=== PATIENT | male | born 1995 | race Caucasian/White ===

== ENCOUNTER 2016-06-18 20:43 | Emergency (ER) | payer BC ==
[2016-06-18] MEDS ORDERED: NS 1,000 ML IV ONE (20:52)
[2016-06-18 20:59] VITALS: BP 127/66; PULSE 56; RESP 16; TEMP 98.5; O2SAT 95
[2016-06-18 21:10] LABS: % IMMATURE GRANULYOCYTES 0.3 % (0.0-1.1); ABSOLUTE IMMATURE GRANULOCYTES 0.02 10^3/uL (0.00-0.10); ADD DIFF? NO; ADD MORPH? NO; ADD SCAN? NO; ATYPICAL LYMPHOCYTE FLAG 0 (0-99); FRAGMENT RBC FLAG 0 (0-99); HEMATOCRIT 47.5 % (40.0-51.0); HEMOGLOBIN 16.2 g/dL (13.7-17.5); LEFT SHIFT FLG 0 (0-99); LIPEMIA HEMOLYSIS FLAG 90 (0-99); MEAN CELL HEMOGLOBIN 31.4 pg (27.9-34.1); MEAN CELL HEMOGLOBIN CONCENTR. 34.1 g/dL (32.4-36.7); MEAN CELL VOLUME 92.1 fL (81.5-99.8); MEAN PLATELET VOLUME 8.8 fL (8.7-11.7); PLATELET CLUMPS FLAG 0 (0-99); PLATELET COUNT 219 10^3/uL (150-400); RED BLOOD CELL COUNT 5.16 10^6/uL (4.40-6.38); RED CELL DISTRIBUTION WIDTH 11.9 % (11.5-15.2)
[2016-06-18 21:22] LABS: ANION GAP 10 mEq/L (8-16); CALCIUM 8.7 mg/dL (8.5-10.4); CARBON DIOXIDE 26 mEq/l (22-31); CHLORIDE 102 mEq/L (97-110); CREATININE 0.9 mg/dL (0.7-1.3); GLOMERULAR FILTRATION RATE > 60; GLUCOSE 90 mg/dL (70-100); POTASSIUM 4.1 mEq/L (3.5-5.2); SODIUM 138 mEq/L (134-144)
[2016-06-18] MEDS ORDERED: ONDANSETRON 4 MG/2 ML VIAL IVP ONE (21:46)
[2016-06-18 21:49] LABS: COLOR YELLOW; LEUKOCYTE ESTERASE,URINE NEGATIVE (NEGATIVE); NITRITE,URINE NEGATIVE (NEGATIVE); PH,URINE 6.5 (5.0-7.5)
[2016-06-18 22:11] LABS: ALBUMIN 3.4 g/dL (3.5-5.0); BILIRUBIN,TOTAL 0.9 mg/dL (0.1-1.4); BILIRUBIN-CONJUGATED 0.3 mg/dL (0.0-0.5); BILIRUBIN-UNCONJUGATED 0.6 mg/dL (0.0-1.1); TOTAL PROTEIN 6.5 g/dL (6.3-8.2)
[2016-06-18] MEDS ORDERED: cefTRIAXone 0.25 GM in NS 100 ML IV ONE (22:20)
[2016-06-18] MEDS ORDERED: DOXYCYCLINE 100 MG PREPACK#2 BTL TAKEHOME ONE (22:21)
--- NOTE | 2016-06-18 22:25 | UCPHY ---
H & P Patient Type: Established Chief Complaint Nursing Narrative: complains of fatigue, body aches, nausea and low back pain x 3 days. Was seen at [facility], given fluids and tested negative for influenza. Time Seen by Provider: 06/18/16 20:52 HPI/ROS: Since Thursday, 3 days prior to arrival this patient has fatigue, body aches and some testicular discomfort. He explains that on Thursday he 1st noted a frontal throbbing headache 2009 at its peak intensity worse with movement associated with some nausea. That has since diminished to a 1/10 mild head discomfort. He however complains now more of lower back ache bilaterally that worsened since Thursday. This is somewhat positional he feels but does not feel like it is in the muscles. He feels is deeper in an . He also reports mild right testicular discomfort when asked. He has associated chills since subjective fevers and myalgias. He was seen at the [facility] for DU and tested negative for influenza. ROS: Constitutional: As per HPI with no other complaints. HEENT: He denies any nasal congestion. No sore throat. No vision complaints. Neuro: No complaints. Pulmonary: No cough. GI: He has diminished appetite and some nausea but no vomiting. He reports normal bowel movements. He reports minimal p.o. intake due to anorexia since Thursday. No diarrhea. : Mild right testicular or epididymal discomfort. He also reports mild dysuria. No urethral discharge. No genital lesions. Integumentary: No rash. 10 point ROS is otherwise negative. 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 He denies any STD risk factors. No recent foreign travel. - Physical Exam Exam: Vital signs are normal. General Appearance: Alert, no distress. Eyes: Pupils equal and round no pallor or injection. ENT, Mouth: Mucous membranes moist. Respiratory: There are no retractions, lungs are clear to auscultation. Cardiovascular: Regular rate and rhythm. Gastrointestinal: Abdomen is soft with mild right upper quadrant tenderness, no masses, bowel sounds normal. : Patient has right epididymal tenderness. Appreciate no testicular swelling. I appreciate no obvious testicular or epididymal masses. Left epididymis and testicle is nontender. Circumcised penis with no urethral discharge or genital lesions. Back: No obvious muscular tenderness to palpation. He also denies any lisette CVA tenderness but he admits that there is no external tenderness that reproduces symptoms including no midline spine tenderness. Neurological: Alert with no focal deficits. Skin: Warm and mildly diaphoretic, no rashes. Musculoskeletal: Neck is supple nontender. Extremities are symmetrical, full range of motion. Psychiatric: Mood and affect normal DIFFERENTIAL DIAGNOSIS: After history and physical exam differential diagnosis was considered for epididymitis, pyelonephritis, viral syndrome, doubt viral meningitis, rhabdomyolysis, nephritis, hepatitis Constitutional: Initial Vital Signs Temperature (C) 36.9 C 06/18/16 20:57 Heart Rate 56 L 06/18/16 20:57 Respiratory Rate 16 06/18/16 20:57 Blood Pressure 127/66 H 06/18/16 20:57 O2 Sat (%) 95 06/18/16 20:57 O2 Delivery Mode Room Air Allergies/Adverse Reactions: Sulfa (Sulfonamide Antibiotics) Allergy (Verified 06/18/16 20:57) Home Medications: Medication Instructions Recorded Doxycycline Hyclate [Vibramycin 100 mg PO BID #14 cap 06/18/16 100 MG (*)] Ondansetron Odt [Zofran Odt] 4 - 8 mg PO Q4PRN PRN #4 tab 06/18/16 Medical Decision Making ED Course/Re-evaluation: IV normal saline bolus, Zofran for nausea with improvement. He tolerated p.o. intake thereafter. The patient had ibuprofen Tylenol within hours prior to arrival with mild improvement in symptoms. After workup, a unremarkable CBC, LFTs, urinalysis but patient has complained of right testicle pain and right epididymal tenderness on exam. I suspect he has epididymitis and counseled him regarding this. He is treated with ceftriaxone 250 mg IV and doxycycline 100 mg p. o. here to start and will continue on the doxycycline for the next week. A split specimen is obtained and is pending. While the patient feels poorly, he does not appear toxic. He does not have septic physiology. I counseled patient regarding or findings and treatment plan. The patient is sent home in stable condition with normal vital signs tolerating p.o. intake. - Data Points Laboratory Results: Laboratory Results 06/18/16 20:56 06/18/16 20:56 06/18/16 06/18/16 21:40 20:56 WBC 5.96 10^3/uL (3.80-9.50) RBC 5.16 10^6/uL (4.40-6.38) Hgb 16.2 g/dL (13.7-17.5) Hct 47.5 % (40.0-51.0) MCV 92.1 fL (81.5-99.8) MCH 31.4 pg (27.9-34.1) MCHC 34.1 g/dL (32.4-36.7) RDW 11.9 % (11.5-15.2) Plt Count 219 10^3/uL (150-400) MPV 8.8 fL (8.7-11.7) Neut % (Auto) 66.9 % (39.3-74.2) Lymph % (Auto) 17.4 % (15.0-45.0) [place] % (Auto) 13.8 H % (4.5-13.0) Eos % (Auto) 1.3 % (0.6-7.6) Baso % (Auto) 0.3 % (0.3-1.7) Nucleat RBC Rel Count 0.0 % (0.0-0.2) Absolute Neuts (auto) 3.98 10^3/uL (1.70-6.50) Absolute Lymphs (auto) 1.04 10^3/uL (1.00-3.00) Absolute Monos (auto) 0.82 H 10^3/uL (0.30-0.80) Absolute Eos (auto) 0.08 10^3/uL (0.03-0.40) Absolute Basos (auto) 0.02 10^3/uL (0.02-0.10) Absolute Nucleated RBC 0.00 10^3/uL (0-0.01) Immature Gran % 0.3 % (0.0-1.1) Immature Gran # 0.02 10^3/uL (0.00-0.10) Sodium 138 mEq/L (134-144) Potassium 4.1 mEq/L (3.5-5.2) Chloride 102 mEq/L (97-110) Carbon Dioxide 26 mEq/l (22-31) Anion Gap 10 mEq/L (8-16) BUN 10 mg/dL (7-23) Creatinine 0.9 mg/dL (0.7-1.3) Estimated GFR > 60 Glucose 90 mg/dL (70-100) Calcium 8.7 mg/dL (8.5-10.4) Total Bilirubin 0.9 mg/dL (0.1-1.4) Conjugated Bilirubin 0.3 mg/dL (0.0-0.5) Unconjugated Bilirubin 0.6 mg/dL (0.0-1.1) AST 33 IU/L (17-59) ALT 27 IU/L (21-72) Alkaline Phosphatase 80 IU/L (38-126) Creatine Kinase 48 IU/L (0-224) Total Protein 6.5 g/dL (6.3-8.2) Albumin 3.4 L g/dL (3.5-5.0) Urine Color YELLOW Urine Appearance CLEAR Urine pH 6.5 (5.0-7.5) Ur Specific [place] 1.010 (1.002-1.030) Urine Protein NEGATIVE (NEGATIVE) Urine Ketones NEGATIVE (NEGATIVE) Urine Blood NEGATIVE (NEGATIVE) Urine Nitrate NEGATIVE (NEGATIVE) Urine Bilirubin NEGATIVE (NEGATIVE) Urine Urobilinogen 1.0 EU (0.2-1.0) Ur Leukocyte Esterase NEGATIVE (NEGATIVE) Urine Glucose NEGATIVE (NEGATIVE) C.trachomatis RNA (TMA) Pending Monoscreen NEGATIVE (NEGATIVE) N.gonorrhoeae RNA (TMA) Pending Medications Given: Discontinued Medications Doxycycline Hyclate (Vibramycin 100 Mg Prepack#2) 1 btl TAKEHOME EDNOW ONE Stop: 06/18/16 22:22 Last Admin: 06/18/16 22:30 Dose: 1 btl Sodium Chloride (Ns) 1,000 mls @ 0 mls/hr IV ONCE ONE PRN Reason: Wide Open Stop: 06/18/16 20:53 Last Admin: 06/18/16 20:55 Dose: 1,000 mls Ceftriaxone Sodium 0.25 gm/ (Sodium Chloride) 100 mls @ 200 mls/hr IV EDNOW ONE PRN Reason: Protocol Stop: 06/18/16 22:49 Last Admin: 06/18/16 22:20 Dose: 100 mls Ondansetron HCl (Zofran) 4 mg IVP EDNOW ONE Stop: 06/18/16 21:47 Last Admin: 06/18/16 21:49 Dose: 4 mg Departure - Departure Disposition: Home, Routine, Self-Care Clinical Impression: Acute epididymitis, Nausea Condition: Good Instructions: Epididymitis (ED) Additional Instructions: Diagnosis: 1. Epididymitis 2. Nausea Plan: Drink plenty fluids Continue ibuprofen and Tylenol for aches and pains as needed Zofran for nausea if needed Doxycycline antibiotic Wear sunscreen if you are outside is the doxycycline will make him more prone to sunburn Eat yogurt and/or probiotic while on this antibiotic to prevent diarrhea. Return for any significant worsening despite the treatment plan. Referrals: NONE *PRIMARY CARE P,. [Primary Care Provider] - As per Instructions Prescriptions: Doxycycline Hyclate [Vibramycin 100 MG (*)] 100 mg PO BID #14 cap Ondansetron Odt [Zofran Odt] 4 - 8 mg PO Q4PRN PRN #4 tab PRN Reason: Vomiting - PQRS PQRS Measurement: NA
[2016-06-18] MEDS ORDERED: LIDO/EPI 1% **for epidural** 30 ML SDV ONE (22:26)
[2016-06-20 12:32] LABS: CHLAMYDIA AMPLIFICATION GENPRB NEGATIVE (NEGATIVE)
== END 2016-06-18 22:56 | disposition home or self-care (01) ==
LOC: CED 20:43
DX: N45.1 Epididymitis (principal); R11.0 Nausea
CPT/HCPCS: 80048-PO; 80076-PO; 81003-PO; 82550-PO; 85025-PO; 86308-PO; 96361-PO; 96365-PO; 96374-PO; 96375-PO; 99215-PO; G0463-PO; J0696; J2405

== ENCOUNTER 2017-01-02 21:37 | Emergency (ER) | payer BC ==
[2017-01-02] MEDS ORDERED: IBUPROFEN 200 MG TAB PO ONE (21:50)
[2017-01-02] MEDS ORDERED: KETOROLAC 15 MG/1 ML SDV IVP ONE (21:53)
[2017-01-02] MEDS ORDERED: NS 1,000 ML IV ONE ×2 (21:55→22:45)
--- NOTE | 2017-01-02 21:59 | EDPHY ---
H & P Stated Complaint: fever, tired, ST Source: Patient, Family - Medical/Surgical History Hx Asthma: Yes Hx Chronic Respiratory Disease: No Hx Diabetes: No Hx Cardiac Disease: No Hx Renal Disease: No Hx Cirrhosis: No Hx Alcoholism: No Hx HIV/AIDS: No Hx Splenectomy or Spleen Trauma: No Other PMH: APPY - Family History Significant Family History: No pertinent family hx - Social History Smoking Status: Never smoked Time Seen by Provider: 01/02/17 21:54 HPI/ROS: CHIEF COMPLAINT: Sore throat and fever History by patient and his mother HISTORY OF PRESENT ILLNESS: 21-year-old otherwise healthy young man presents complaining of 24 hours of fever, malaise, sore throat and body aches. The illness began last night with a sore throat. He complains of severe fatigue was unable to get out of bed all day today. He did do a very hard bike ride 2 days ago. His mother was worried he might have rhabdomyolysis because of this bike riding. He denies any runny nose or cough. He says he feels like it is hard to take a deep breath but he denies any shortness of breath but may have some pleuritic chest pain. He also complains of some upper back pain. He denies any abdominal pain, nausea vomiting or diarrhea. He denies any urinary symptoms. He has had no ill exposures. He denies any recent tick bites. He does have a mosquito bite on his chest. REVIEW OF SYSTEMS: As in HPI, and all other systems reviewed and are negative (Deepa Martinez) - Physical Exam Exam: General Appearance: Alert, tired and uncomfortable appearing. Eyes: Pupils equal and round no pallor or injection. ENT, Mouth: Mucous membranes moist. Positive bilateral symmetrically enlarged tonsils with redness and white exudate Respiratory: Tachypnea, Normal effort, lungs are clear to auscultation. No wheezes, rales or rhonchi. Cardiovascular: Regular rate and rhythm. S1, S2, no murmurs, gallops or rubs appreciated Gastrointestinal: Abdomen is soft and nontender, no masses, bowel sounds normal. Back: No CVA tenderness, no bony tenderness Neurological: Awake, alert and oriented x 3, no pronator drift, normal gait, no pronator drift Skin: Warm and dry, no rashes. Musculoskeletal: No deformities or tenderness. Extremitie:s full range of motion, no edema Psychiatric: Patient has normal affect, there is no agitation. (Deepa Martinez) Constitutional: Initial Vital Signs Temperature (C) 38.8 C H 01/02/17 21:41 Heart Rate 100 01/02/17 21:41 Respiratory Rate 16 01/02/17 21:41 Blood Pressure 125/76 H 01/02/17 21:41 O2 Sat (%) 94 01/02/17 21:41 O2 Delivery Mode Room Air Allergies/Adverse Reactions: Sulfa (Sulfonamide Antibiotics) Allergy (Verified 01/02/17 21:47) Home Medications: Medication Instructions Recorded Amoxicillin 500 mg PO TID 7 Days 01/03/17 Medical Decision Making ED Course/Re-evaluation: 21-year-old male signed out to me by the previous provider for complaints of fever, myalgias and a sore throat since this morning. Mother states he was fine yesterday and he has not been ill recently otherwise. The patient confirms this by nodding and answering in short sentences. In fact they went on a 5 mi bike ride earlier this week. Workup in this ER stay prior to my arrival shows a mild elevation of his white blood cell count and a slight left shift. A basic metabolic panel was fairly unremarkable. Rapid Strep negative, Culture pending. Lactic Acid nml. CPK nml. Blood Cultures drawn and pending. CXR showed NAD. The patient recieved 2 L of IVF and Toradol. Due to the complaints of pharyngitis and noted exudates on prior exam (I see minimal exudates on subsequent exam) a mono spot and liver enzyme tests were added. When these came back negative I suggested a lumbar puncture. Mother of patient declined head CT prior to LP and understands risks/benefits. After informed consent, a lumbar puncture was attempted x2 under the usual sterile precautions and was unsuccessful. Mother of patient requested transfer to the [facility] for another provider to attempt LP or LP under fluoroscopy. 2 g of Rocephin was ordered but mother declined this and took him by private operating vehicle to the other facility. The emergency provider at the [facility], Dr. Gallegos, was notified of the patient's pending arrival as well as the previous workup. (Simi Walters) 21-year-old man presents with sore throat and fever, somewhat ill-appearing but with stable vital signs. Patient's white blood cell count is elevated but chemistries are unremarkable and lactate was within normal limits. Rapid strep was negative. Patient was given the L of normal saline and ketorolac. On re- evaluation after 200 cc of normal saline and ketorolac the patient continued to feel tired and his throat. Because of his swollen tonsils and pharyngitis he was given IV Decadron. I suspect a viral pharyngitis though I cannot rule out other viral illness or [place]. We will give the patient a 2 liters of fluid and let the Decadron take effect and re-eval. I will transfer care to for final disposition pending re-evaluation. I discussed with patient's mother and with . We will add on monospot test and liver enzymes. ( Deepa Martinez) - Data Points Laboratory Results: Laboratory Results 01/02/17 21:44 01/02/17 21:44 01/03/17 01:15 CSF [place] IgG Ab Cancelled CSF [place] IgM Ab Cancelled CSF [place] Interp Cancelled Miscellaneous Test Pending Microbiology Results: MICROBIOLOGY 01/03/17 01:15 Cerebral Spinal Fluid Gram Stain - Final Medications Given: Discontinued Medications Acetaminophen (Tylenol) 1,000 mg PO EDNOW ONE Stop: 01/03/17 00:23 Last Admin: 01/03/17 00:35 Dose: Not Given Dexamethasone (Decadron Injection) 10 mg IVP EDNOW ONE Stop: 01/02/17 22:29 Last Admin: 01/02/17 22:41 Dose: 10 mg Sodium Chloride (Ns) 1,000 mls @ 0 mls/hr IV EDNOW ONE; Wide Open PRN Reason: Protocol Stop: 01/02/17 21:56 Last Admin: 01/02/17 22:12 Dose: 1,000 mls Sodium Chloride (Ns) 1,000 mls @ 0 mls/hr IV ONCE ONE PRN Reason: Wide Open Stop: 01/02/17 22:46 Last Admin: 01/02/17 22:48 Dose: 1,000 mls Ceftriaxone Sodium 2 gm/ (Sodium Chloride) 100 mls @ 200 mls/hr IV EDNOW ONE PRN Reason: Protocol Stop: 01/03/17 00:58 Last Admin: 01/03/17 00:35 Dose: Not Given Sodium Chloride (Ns) 1,000 mls @ 0 mls/hr IV ONCE ONE; Wide Open PRN Reason: Protocol Stop: 01/03/17 01:04 Last Admin: 01/03/17 01:07 Dose: 1,000 mls Sodium Chloride (Ns) 1,000 mls @ 0 mls/hr IV ONCE ONE PRN Reason: Wide Open Stop: 01/03/17 02:13 Last Admin: 01/03/17 02:16 Dose: 1,000 mls Ibuprofen (Motrin) 400 mg PO EDNOW ONE Stop: 01/02/17 21:51 Last Admin: 01/02/17 21:53 Dose: Not Given Ketorolac Tromethamine (Toradol) 15 mg IVP EDNOW ONE Stop: 01/02/17 21:54 Last Admin: 01/02/17 21:59 Dose: 15 mg Departure - Departure Disposition: Home, Routine, Self-Care Clinical Impression: Viral syndrome, Dehydration Fever Qualifiers: Fever type: unspecified Qualified Code(s): R50.9 - Fever, unspecified Condition: Good Instructions: Dehydration (ED), Fever in Adults (ED), Viral Syndrome (ED) Additional Instructions: 1. Drink lots of fluids stay well-hydrated. 2. Keep your fever down with Tylenol Motrin you can alternate these every 4-6 hours. 3. If you feel worse including abdominal pain vomiting or you feel ill or have high fever return to the emergency room. Referrals: NONE *PRIMARY CARE P,. [Primary Care Provider] - As per Instructions Prescriptions: Amoxicillin 500 mg PO TID 7 Days
[2017-01-02 22:01] LABS: % IMMATURE GRANULYOCYTES 0.2 % (0.0-1.1); ABSOLUTE IMMATURE GRANULOCYTES 0.02 10^3/uL (0.00-0.10); ADD DIFF? NO; ADD MORPH? NO; ADD SCAN? NO; ATYPICAL LYMPHOCYTE FLAG 10 (0-99); FRAGMENT RBC FLAG 0 (0-99); HEMATOCRIT 42.9 % (40.0-51.0); LEFT SHIFT FLG 0 (0-99); LIPEMIA HEMOLYSIS FLAG 90 (0-99); MEAN CELL HEMOGLOBIN 31.4 pg (27.9-34.1); MEAN CELL VOLUME 89.7 fL (81.5-99.8); MEAN PLATELET VOLUME 9.1 fL (8.7-11.7); PLATELET CLUMPS FLAG 0 (0-99); PLATELET COUNT 223 10^3/uL (150-400); RED BLOOD CELL COUNT 4.78 10^6/uL (4.40-6.38); RED CELL DISTRIBUTION WIDTH 11.7 % (11.5-15.2)
[2017-01-02 22:14] LABS: ANION GAP 14 mEq/L (8-16); CALCIUM 9.2 mg/dL (8.5-10.4); CARBON DIOXIDE 21 mEq/l (22-31); CHLORIDE 103 mEq/L (97-110); CREATININE 0.8 mg/dL (0.7-1.3); GLOMERULAR FILTRATION RATE > 60; GLUCOSE 123 mg/dL (70-100); POTASSIUM 3.8 mEq/L (3.5-5.2); SODIUM 138 mEq/L (134-144)
[2017-01-02] MEDS ORDERED: DEXAMETHASONE 10 MG/ML VIAL IVP ONE (22:28)
[2017-01-02 23:16] LABS: ALBUMIN 4.2 g/dL (3.5-5.0); BILIRUBIN,TOTAL 2.1 mg/dL (0.1-1.4); BILIRUBIN-CONJUGATED 0.6 mg/dL (0.0-0.5); BILIRUBIN-UNCONJUGATED 1.5 mg/dL (0.0-1.1); TOTAL PROTEIN 7.3 g/dL (6.3-8.2)
[2017-01-03] MEDS ORDERED: ACETAMINOPHEN 500 MG TAB PO ONE (00:22)
[2017-01-03 00:45] VITALS: RESP 16
--- NOTE | 2017-01-03 00:52 | EDPHY ---
H & P Stated Complaint: fever, tired, ST Time Seen by Provider: 01/02/17 21:54 HPI/ROS: HPI CHIEF COMPLAINT: Fever, sore throat, chills, sent over from [facility]. HISTORY OF PRESENT ILLNESS: This patient otherwise healthy 21-year-old male, he presents emergency room after was seen at [facility] in [place] for fever and sore throat. At that time he had a rather large workup including strep test, mono, blood work including blood cultures, lactic acid that was less than 2. There was an attempt made for lumbar puncture however was unsuccessful. They were sent over here to the emergency room for further care and repeat a lumbar puncture. Per the patient he states he woke up around 7:00 a.m. yesterday morning feeling ill. With generalized weakness, muscle aches, joint pain and sore throat. No abdominal pain no vomiting no diarrhea no productive cough. Denies chest pain or shortness of breath. States he slept most of the day his mom who is ER physician checked on him this evening had a hard time getting him up out of bed. Brought him to urgent care. It was noted he had a fever at [facility] he was given Toradol and he took Tylenol around 7:00 p.m.. He also received 2 L of normal saline fluid at [facility]. Upon arrival here in the emergency room the patient appears well nontoxic no acute distress. He does still complain of generalized weakness, sore throat, and neck pain and headache. Denies stiff neck. Past Medical History: No significant medical history Past Surgical History: No significant surgical history Social History: Student, denies illicit drugs alcohol tobacco. Family History: Noncontributory. ROS REVIEW OF SYSTEMS: A comprehensive 10 point review of systems is otherwise negative aside from elements mentioned in the history of present illness. Exam Constitutional appears well nontoxic, triage nursing summary reviewed, vital signs reviewed, awake/alert. Eyes normal conjunctivae and sclera, EOMI, PERRLA. HENT normal inspection, atraumatic, moist mucus membranes, no epistaxis, neck supple/ no meningismus, no raccoon eyes. Respiratory clear to auscultation bilaterally, normal breath sounds, no respiratory distress, no wheezing. Cardiovascular rate normal, regular rhythm, no murmur, no edema, distal pulses normal. Gastrointestinal soft, non-tender, no rebound, no guarding, normal bowel sounds, no distension, no pulsatile mass. Genitourinary no CVA tenderness. Musculoskeletal no midline vertebral tenderness, full range of motion, no calf swelling, no tenderness of extremities, no meningismus, good pulses, neurovascularly intact. Skin pink, warm, & dry, no rash, skin atraumatic. Neurologic I do not appreciate any neurological deficit or focal neuro deficit or meningeal signs, specifically there is no stiff neck, awake, alert and oriented x 3, AAOx3, moves all 4 extremities equally, motor intact, sensory intact, CN II-XII intact, normal cerebellar, normal vision, normal speech. Psychiatric normal mood/affect. Heme/Lymph/Immune no lymphadenopathy. Differential Diagnosis: Includes but is not limited to in a particular order, viral illness, viral syndrome, bacteremia, urinary tract infection, pneumonia, viral pharyngitis, strep pharyngitis, mono, viral meningitis, bacterial meningitis, [place] Medical Decision Making: Plan for this patient 3rd L fluid here in the emergency room. His fever is down. He is not tachycardic. And will attempt 2nd attempt at lumbar puncture. Most likely this patient need to be admitted overnight for observation. I discussed this with the patient. As well as his mom who is an ER physician. Re-evaluation: 0126AM: This time patient's vital signs are stable. He is nontoxic appearing. He is getting his 3rd L fluid. He still has not urinated. Will wait for urinalysis. His lumbar puncture at this time is been completed. He tolerated this well no complications. Procedure: Lumbar puncture. Indication: Fever, headache, neck pain After verbal informed consent from patient explaining the risks including infection, bleeding, and neurologic damage, a lumbar puncture was performed after the patient was prepped and draped in the usual fashion. The back was anesthetized with 1% lidocaine. Approximately 4 cc of clear fluid was obtained. Opening pressure was not obtained. There were no complications. The procedure was performed by myself. 0212AM: Patient re-evaluated this time resting. Vital signs stable. Blood work and LP results come I went over this with his mom. West Nile virus studies are still pending. Otherwise CSF studies do not indicate meningitis. Plan will be for 4th L fluid. Urinalysis pending at this time. 0229AM: Will provide amoxicillin prescription in case his strep test turns positive. Prescription given to his mom. Source: Patient - Medical/Surgical History Hx Asthma: Yes Hx Chronic Respiratory Disease: No Hx Diabetes: No Hx Cardiac Disease: No Hx Renal Disease: No Hx Cirrhosis: No Hx Alcoholism: No Hx HIV/AIDS: No Hx Splenectomy or Spleen Trauma: No Other PMH: APPY - Family History Significant Family History: No pertinent family hx - Social History Smoking Status: Never smoked Constitutional: Initial Vital Signs Temperature (C) 38.8 C H 01/02/17 21:41 Heart Rate 100 01/02/17 21:41 Respiratory Rate 16 01/02/17 21:41 Blood Pressure 125/76 H 01/02/17 21:41 O2 Sat (%) 94 01/02/17 21:41 O2 Delivery Mode Room Air Allergies/Adverse Reactions: Sulfa (Sulfonamide Antibiotics) Allergy (Verified 01/02/17 21:47) Home Medications: Medication Instructions Recorded Amoxicillin 500 mg PO TID 7 Days 01/03/17 Medical Decision Making - Diagnostics Imaging Results: Imaging Impressions Chest X-Ray 01/02/17 21:55 Impression: Clear lungs. No pneumonia. - Data Points Laboratory Results: Laboratory Results 01/02/17 21:44 01/02/17 21:44 01/03/17 01/03/17 01/03/17 01:55 01:15 01:15 WBC RBC Hgb Hct MCV MCH MCHC RDW Plt Count MPV Neut % (Auto) Lymph % (Auto) [place] % (Auto) Eos % (Auto) Baso % (Auto) Nucleat RBC Rel Count Absolute Neuts (auto) Absolute Lymphs (auto) Absolute Monos (auto) Absolute Eos (auto) Absolute Basos (auto) Absolute Nucleated RBC Immature Gran % Immature Gran # VBG Lactic Acid Sodium Potassium Chloride Carbon Dioxide Anion Gap BUN Creatinine Estimated GFR Glucose Calcium Total Bilirubin Conjugated Bilirubin Unconjugated Bilirubin AST ALT Alkaline Phosphatase Creatine Kinase Total Protein Albumin Urine Color YELLOW Urine Appearance CLEAR Urine pH 5.0 (5.0-7.5) Ur Specific [place] 1.031 H (1.002-1.030) Urine Protein NEGATIVE (NEGATIVE) Urine Ketones NEGATIVE (NEGATIVE) Urine Blood NEGATIVE (NEGATIVE) Urine Nitrate NEGATIVE (NEGATIVE) Urine Bilirubin NEGATIVE (NEGATIVE) Urine Urobilinogen NEGATIVE EU EU (0.2-1.0) Ur Leukocyte Esterase NEGATIVE (NEGATIVE) Urine Glucose NEGATIVE (NEGATIVE) CSF Tube Number 4 CSF Appearance CLEAR (CLEAR) CSF Color COLORLESS (COLORLESS) CSF Supernatant COLORLESS (COLORLESS) CSF WBC 0 /mm3 /mm3 (0-5) CSF RBC 0 /mm3 /mm3 (0-0) CSF Glucose CSF Total Protein CSF [place] IgG Ab Pending CSF [place] IgM Ab Pending CSF [place] Interp Pending Monoscreen Group A Strep Screen Group A Strep DNA 01/03/17 01/02/17 01/02/17 01:15 Unknown 21:50 WBC RBC Hgb Hct MCV MCH MCHC RDW Plt Count MPV Neut % (Auto) Lymph % (Auto) [place] % (Auto) Eos % (Auto) Baso % (Auto) Nucleat RBC Rel Count Absolute Neuts (auto) Absolute Lymphs (auto) Absolute Monos (auto) Absolute Eos (auto) Absolute Basos (auto) Absolute Nucleated RBC Immature Gran % Immature Gran # VBG Lactic Acid Sodium Potassium Chloride Carbon Dioxide Anion Gap BUN Creatinine Estimated GFR Glucose Calcium Total Bilirubin Conjugated Bilirubin Unconjugated Bilirubin AST ALT Alkaline Phosphatase Creatine Kinase Total Protein Albumin Urine Color Urine Appearance Urine pH Ur Specific [place] Urine Protein Urine Ketones Urine Blood Urine Nitrate Urine Bilirubin Urine Urobilinogen Ur Leukocyte Esterase Urine Glucose CSF Tube Number 1 CSF Appearance CLEAR (CLEAR) CSF Color COLORLESS (COLORLESS) CSF Supernatant COLORLESS (COLORLESS) CSF WBC 2 /mm3 /mm3 (0-5) CSF RBC 2 /mm3 H /mm3 (0-0) CSF Glucose 53 mg/dL mg/dL (50-75) CSF Total Protein 26 mg/dL mg/dL (12-60) CSF [place] IgG Ab CSF [place] IgM Ab CSF [place] Interp Monoscreen Group A Strep Screen NEGATIVE (NEGATIVE) Group A Strep DNA Pending 01/02/17 01/02/17 01/02/17 21:44 21:44 21:44 WBC RBC Hgb Hct MCV MCH MCHC RDW Plt Count MPV Neut % (Auto) Lymph % (Auto) [place] % (Auto) Eos % (Auto) Baso % (Auto) Nucleat RBC Rel Count Absolute Neuts (auto) Absolute Lymphs (auto) Absolute Monos (auto) Absolute Eos (auto) Absolute Basos (auto) Absolute Nucleated RBC Immature Gran % Immature Gran # VBG Lactic Acid Sodium 138 mEq/L mEq/L (134-144) Potassium 3.8 mEq/L mEq/L (3.5-5.2) Chloride 103 mEq/L mEq/L (97-110) Carbon Dioxide 21 mEq/l L mEq/l (22-31) Anion Gap 14 mEq/L mEq/L (8-16) BUN 20 mg/dL mg/dL (7-23) Creatinine 0.8 mg/dL mg/dL (0.7-1.3) Estimated GFR > 60 Glucose 123 mg/dL H mg/dL (70-100) Calcium 9.2 mg/dL mg/dL (8.5-10.4) Total Bilirubin 2.1 mg/dL H mg/dL (0.1-1.4) Conjugated Bilirubin 0.6 mg/dL H mg/dL (0.0-0.5) Unconjugated Bilirubin 1.5 mg/dL H mg/dL (0.0-1.1) AST 29 IU/L IU/L (17-59) ALT 33 IU/L IU/L (21-72) Alkaline Phosphatase 65 IU/L IU/L (38-126) Creatine Kinase 122 IU/L IU/L (0-224) Total Protein 7.3 g/dL g/dL (6.3-8.2) Albumin 4.2 g/dL g/dL (3.5-5.0) Urine Color Urine Appearance Urine pH Ur Specific [place] Urine Protein Urine Ketones Urine Blood Urine Nitrate Urine Bilirubin Urine Urobilinogen Ur Leukocyte Esterase Urine Glucose CSF Tube Number CSF Appearance CSF Color CSF Supernatant CSF WBC CSF RBC CSF Glucose CSF Total Protein CSF [place] IgG Ab CSF [place] IgM Ab CSF [place] Interp Monoscreen NEGATIVE (NEGATIVE) Group A Strep Screen Group A Strep DNA 01/02/17 01/02/17 21:44 21:44 WBC 11.82 10^3/uL H 10^3/uL (3.80-9.50) RBC 4.78 10^6/uL 10^6/uL (4.40-6.38) Hgb 15.0 g/dL g/dL (13.7-17.5) Hct 42.9 % % (40.0-51.0) MCV 89.7 fL fL (81.5-99.8) MCH 31.4 pg pg (27.9-34.1) MCHC 35.0 g/dL g/dL (32.4-36.7) RDW 11.7 % % (11.5-15.2) Plt Count 223 10^3/uL 10^3/uL (150-400) MPV 9.1 fL fL (8.7-11.7) Neut % (Auto) 86.8 % H % (39.3-74.2) Lymph % (Auto) 5.5 % L % (15.0-45.0) [place] % (Auto) 6.4 % % (4.5-13.0) Eos % (Auto) 0.8 % % (0.6-7.6) Baso % (Auto) 0.3 % % (0.3-1.7) Nucleat RBC Rel Count 0.0 % % (0.0-0.2) Absolute Neuts (auto) 10.26 10^3/uL H 10^3/uL (1.70-6.50) Absolute Lymphs (auto) 0.65 10^3/uL L 10^3/uL (1.00-3.00) Absolute Monos (auto) 0.76 10^3/uL 10^3/uL (0.30-0.80) Absolute Eos (auto) 0.10 10^3/uL 10^3/uL (0.03-0.40) Absolute Basos (auto) 0.03 10^3/uL 10^3/uL (0.02-0.10) Absolute Nucleated RBC 0.00 10^3/uL 10^3/uL (0-0.01) Immature Gran % 0.2 % % (0.0-1.1) Immature Gran # 0.02 10^3/uL 10^3/uL (0.00-0.10) VBG Lactic Acid 1.7 mmol/L mmol/L (0.7-2.1) Sodium Potassium Chloride Carbon Dioxide Anion Gap BUN Creatinine Estimated GFR Glucose Calcium Total Bilirubin Conjugated Bilirubin Unconjugated Bilirubin AST ALT Alkaline Phosphatase Creatine Kinase Total Protein Albumin Urine Color Urine Appearance Urine pH Ur Specific [place] Urine Protein Urine Ketones Urine Blood Urine Nitrate Urine Bilirubin Urine Urobilinogen Ur Leukocyte Esterase Urine Glucose CSF Tube Number CSF Appearance CSF Color CSF Supernatant CSF WBC CSF RBC CSF Glucose CSF Total Protein CSF [place] IgG Ab CSF [place] IgM Ab CSF [place] Interp Monoscreen Group A Strep Screen Group A Strep DNA Microbiology Results: MICROBIOLOGY 01/03/17 01:15 Cerebral Spinal Fluid Gram Stain - Final Medications Given: Discontinued Medications Acetaminophen (Tylenol) 1,000 mg PO EDNOW ONE Stop: 01/03/17 00:23 Last Admin: 01/03/17 00:35 Dose: Not Given Dexamethasone (Decadron Injection) 10 mg IVP EDNOW ONE Stop: 01/02/17 22:29 Last Admin: 01/02/17 22:41 Dose: 10 mg Sodium Chloride (Ns) 1,000 mls @ 0 mls/hr IV EDNOW ONE; Wide Open PRN Reason: Protocol Stop: 01/02/17 21:56 Last Admin: 01/02/17 22:12 Dose: 1,000 mls Sodium Chloride (Ns) 1,000 mls @ 0 mls/hr IV ONCE ONE PRN Reason: Wide Open Stop: 01/02/17 22:46 Last Admin: 01/02/17 22:48 Dose: 1,000 mls Ceftriaxone Sodium 2 gm/ (Sodium Chloride) 100 mls @ 200 mls/hr IV EDNOW ONE PRN Reason: Protocol Stop: 01/03/17 00:58 Last Admin: 01/03/17 00:35 Dose: Not Given Sodium Chloride (Ns) 1,000 mls @ 0 mls/hr IV ONCE ONE; Wide Open PRN Reason: Protocol Stop: 01/03/17 01:04 Last Admin: 01/03/17 01:07 Dose: 1,000 mls Sodium Chloride (Ns) 1,000 mls @ 0 mls/hr IV ONCE ONE PRN Reason: Wide Open Stop: 01/03/17 02:13 Last Admin: 01/03/17 02:16 Dose: 1,000 mls Ibuprofen (Motrin) 400 mg PO EDNOW ONE Stop: 01/02/17 21:51 Last Admin: 01/02/17 21:53 Dose: Not Given Ketorolac Tromethamine (Toradol) 15 mg IVP EDNOW ONE Stop: 01/02/17 21:54 Last Admin: 01/02/17 21:59 Dose: 15 mg Departure - Departure Disposition: Home, Routine, Self-Care Clinical Impression: Viral syndrome, Dehydration Fever Qualifiers: Fever type: unspecified Qualified Code(s): R50.9 - Fever, unspecified Condition: Good Instructions: Dehydration (ED), Fever in Adults (ED), Viral Syndrome (ED) Additional Instructions: 1. Drink lots of fluids stay well-hydrated. 2. Keep your fever down with Tylenol Motrin you can alternate these every 4-6 hours. 3. If you feel worse including abdominal pain vomiting or you feel ill or have high fever return to the emergency room. Referrals: NONE *PRIMARY CARE P,. [Primary Care Provider] - As per Instructions Prescriptions: Amoxicillin 500 mg PO TID 7 Days
[2017-01-03] MEDS ORDERED: NS 1,000 ML IV ONE ×2 (01:03→02:12)
[2017-01-03 01:14] VITALS: O2SAT 97
[2017-01-03 01:54] LABS: CSF APPEARANCE CLEAR (CLEAR); CSF COLOR COLORLESS (COLORLESS); CSF SUPERNATANT COLORLESS (COLORLESS); PROTEIN, CSF 26 mg/dL (12-60); WBC, CSF 2 /mm3 (0-5)
[2017-01-03 01:55] LABS: CSF SUPERNATANT COLORLESS (COLORLESS)
[2017-01-03 02:01] LABS: WBC, CSF 0 /mm3 (0-5)
[2017-01-03 02:15] LABS: COLOR YELLOW; LEUKOCYTE ESTERASE,URINE NEGATIVE (NEGATIVE); NITRITE,URINE NEGATIVE (NEGATIVE)
[2017-01-03 02:46] VITALS: BP 121/63; PULSE 75; TEMP 98.1
== END 2017-01-03 02:51 | disposition home or self-care (01) ==
LOC: CED 21:37
PROC: 009U3ZX Drainage of Spinal Canal, Percutaneous Approach, Diagnostic (ICD-10-PCS; principal; 2017-01-02)
DX: B34.9 Viral infection, unspecified (principal); E86.0 Dehydration; J45.909 Unspecified asthma, uncomplicated; E86.9 Volume depletion, unspecified
CPT/HCPCS: 71020-PO; 80048-PO; 80076-PO; 81003-PO; 82550-PO; 83605-PO; 85025-PO; 86308-PO; 87880-PO; 96374; J1100; J1885

== ENCOUNTER 2017-01-05 06:30 | Emergency (ER) | payer BC ==
[2017-01-05 06:35] VITALS: RESP 16; TEMP 97.7
[2017-01-05] MEDS ORDERED: NS 1,000 ML IV ONE (06:37)
--- NOTE | 2017-01-05 06:38 | EDPHY ---
H & P Stated Complaint: LANGE, post recent spinal tap 01/02 Source: Patient - Personal History Current Tetanus/Diphtheria Vaccine: Yes - Medical/Surgical History Hx Asthma: Yes Hx Chronic Respiratory Disease: No Hx Diabetes: No Hx Cardiac Disease: No Hx Renal Disease: No Hx Cirrhosis: No Hx Alcoholism: No Hx HIV/AIDS: No Hx Splenectomy or Spleen Trauma: No Other PMH: PSHx: APPY. PMHx: denies - Social History Smoking Status: Never smoked HPI/ROS: HPI CHIEF COMPLAINT: Headache status post lumbar puncture HISTORY OF PRESENT ILLNESS: This patient is a otherwise healthy 21-year-old male I saw and evaluated 2 days ago, for viral illness and headache and neck pain. At that time he had a lumbar puncture. This was uncomplicated here in the emergency room. His CSF studies did not show any signs of meningitis. He went home. He presents back to the emergency room this morning with a positional headache. States he does not have a headache when he lies flat however when he goes to stand up he gets a headache. Concern for post LP headache and need for blood patch. Patient reports to me he has otherwise been feeling well no fever. No stiff neck. No neck pain. Patient reports that his headache is only present when he goes to sit up or stand up. Denies vomiting. Denies visual disturbance. Past Medical History: No significant medical history Past Surgical History: No significant surgical history Social History: Denies daily use of drugs alcohol tobacco products. Family History: Noncontributory. ROS REVIEW OF SYSTEMS: A comprehensive 10 point review of systems is otherwise negative aside from elements mentioned in the history of present illness. Exam Constitutional appears well nontoxic, triage nursing summary reviewed, vital signs reviewed, awake/alert. Eyes normal conjunctivae and sclera, EOMI, PERRLA. HENT normal inspection, atraumatic, moist mucus membranes, no epistaxis, neck supple/ no meningismus, no raccoon eyes. Respiratory clear to auscultation bilaterally, normal breath sounds, no respiratory distress, no wheezing. Cardiovascular rate normal, regular rhythm, no murmur, no edema, distal pulses normal. Gastrointestinal soft, non-tender, no rebound, no guarding, normal bowel sounds, no distension, no pulsatile mass. Genitourinary no CVA tenderness. Musculoskeletal no midline vertebral tenderness, full range of motion, no calf swelling, no tenderness of extremities, no meningismus, good pulses, neurovascularly intact. Skin pink, warm, & dry, no rash, skin atraumatic. Neurologic awake, alert and oriented x 3, AAOx3, moves all 4 extremities equally, motor intact, sensory intact, CN II-XII intact, normal cerebellar, normal vision, normal speech. Psychiatric normal mood/affect. Heme/Lymph/Immune no lymphadenopathy. Differential Diagnosis: Includes but is not limited to in a particular order post lumbar puncture headache, need for blood patch, dehydration, electrolyte disturbance Medical Decision Making: Plan for this patient IV establishment, IV fluid bolus , type and screen for blood patch. Consult IR for blood patch. Re-evaluation: (Maxwell Gallegos) Constitutional: Initial Vital Signs Temperature (C) 36.5 C 01/05/17 06:32 Heart Rate 56 L 01/05/17 06:32 Respiratory Rate 16 01/05/17 06:32 Blood Pressure 105/71 01/05/17 06:32 O2 Sat (%) 94 01/05/17 06:32 O2 Delivery Mode Room Air Allergies/Adverse Reactions: Sulfa (Sulfonamide Antibiotics) Allergy (Verified 01/02/17 21:47) Home Medications: Medication Instructions Recorded Amoxicillin 500 mg PO TID 7 Days 01/03/17 Medical Decision Making ED Course/Re-evaluation: 700: Patient was transferred by Dr. Gallegos at change of shift. Went personally evaluated the patient. I spoke with his mother is also an emergency physician. We are awaiting anesthesia common performed a blood patch. The patient has no complaints at this time while lying flat. He states he only develops a headache when sitting up. GENERAL: Well-appearing, in no acute distress, alert. HEENT: Eyes normal to inspection. NECK: Supple. No signs of meningismus RESPIRATORY: Clear to auscultation bilaterally. CVS: Regular rate and rhythm, no rubs, murmurs, or gallops. ABDOMEN: Soft. BACK: Normal to inspection, Band-Aid in place, no erythema. SKIN: Normal color, no rash, warm, dry. No pallor. EXTREMITIES: Normal-appearing. NEURO/PSYCH: Higher functions: Alert and Oriented. Normal speech and cognition. Normal mood and affect. Cranial nerves: Normal as tested. Cerebellar: Normal as tested. Good finger to nose, good [id number] Peripheral exam: Normal motor exam. Normal sensation. I discussed the plan with the patient. Answered all his questions. We are awaiting anesthesia. Blood patch completed. No complications per Anesthesia. Patient was given Dilaudid and Zofran post blood patch. 840: I rechecked the patient. He was resting comfortably in his bed. He had no new complaints. 935: The patient states his headache is improved. He has no new complaints. I gave him warnings prior to leaving. He will return with worsening symptoms. His mother is present. (Roseline Grayson) Differential Diagnosis: My differential includes but is not limited to subarachnoid hemorrhage, subdural hematoma, migraine, post lumbar puncture headache, meningitis (Roseline Grayson) - Data Points Laboratory Results: Laboratory Results 01/05/17 06:41 01/05/17 06:41 01/05/17 01/05/17 01/05/17 06:41 06:41 06:41 WBC RBC Hgb Hct MCV MCH MCHC RDW Plt Count MPV Neut % (Auto) Lymph % (Auto) [place] % (Auto) Eos % (Auto) Baso % (Auto) Nucleat RBC Rel Count Absolute Neuts (auto) Absolute Lymphs (auto) Absolute Monos (auto) Absolute Eos (auto) Absolute Basos (auto) Absolute Nucleated RBC Immature Gran % Immature Gran # PT 12.8 SEC SEC (12.0-15.0) INR 0.97 (0.83-1.16) APTT 32.0 SEC SEC (23.0-38.0) Sodium 141 mEq/L mEq/L (134-144) Potassium 4.3 mEq/L mEq/L (3.5-5.2) Chloride 104 mEq/L mEq/L (97-110) Carbon Dioxide 21 mEq/l L mEq/l (22-31) Anion Gap 16 mEq/L mEq/L (8-16) BUN 12 mg/dL mg/dL (7-23) Creatinine 0.8 mg/dL mg/dL (0.7-1.3) Estimated GFR > 60 Glucose 89 mg/dL mg/dL (70-100) Calcium 10.1 mg/dL mg/dL (8.5-10.4) Patient ABO/Rh B POSITIVE Antibody Screen NEGATIVE 01/05/17 06:41 WBC 9.39 10^3/uL 10^3/uL (3.80-9.50) RBC 5.11 10^6/uL 10^6/uL (4.40-6.38) Hgb 15.9 g/dL g/dL (13.7-17.5) Hct 46.2 % % (40.0-51.0) MCV 90.4 fL fL (81.5-99.8) MCH 31.1 pg pg (27.9-34.1) MCHC 34.4 g/dL g/dL (32.4-36.7) RDW 11.5 % % (11.5-15.2) Plt Count 253 10^3/uL 10^3/uL (150-400) MPV 9.3 fL fL (8.7-11.7) Neut % (Auto) 50.3 % % (39.3-74.2) Lymph % (Auto) 36.2 % % (15.0-45.0) [place] % (Auto) 10.1 % % (4.5-13.0) Eos % (Auto) 2.6 % % (0.6-7.6) Baso % (Auto) 0.6 % % (0.3-1.7) Nucleat RBC Rel Count 0.0 % % (0.0-0.2) Absolute Neuts (auto) 4.72 10^3/uL 10^3/uL (1.70-6.50) Absolute Lymphs (auto) 3.40 10^3/uL H 10^3/uL (1.00-3.00) Absolute Monos (auto) 0.95 10^3/uL H 10^3/uL (0.30-0.80) Absolute Eos (auto) 0.24 10^3/uL 10^3/uL (0.03-0.40) Absolute Basos (auto) 0.06 10^3/uL 10^3/uL (0.02-0.10) Absolute Nucleated RBC 0.00 10^3/uL 10^3/uL (0-0.01) Immature Gran % 0.2 % % (0.0-1.1) Immature Gran # 0.02 10^3/uL 10^3/uL (0.00-0.10) PT INR APTT Sodium Potassium Chloride Carbon Dioxide Anion Gap BUN Creatinine Estimated GFR Glucose Calcium Patient ABO/Rh Antibody Screen Medications Given: Discontinued Medications Hydromorphone HCl (Dilaudid) 1 mg IVP EDNOW ONE Stop: 01/05/17 08:11 Last Admin: 01/05/17 08:15 Dose: 1 mg Sodium Chloride (Ns) 1,000 mls @ 0 mls/hr IV ONCE ONE PRN Reason: Wide Open Stop: 01/05/17 06:38 Last Admin: 01/05/17 06:44 Dose: 1,000 mls Ondansetron HCl (Zofran) 4 mg IVP EDNOW ONE Stop: 01/05/17 08:11 Last Admin: 01/05/17 08:15 Dose: 4 mg Departure - Departure Disposition: Home, Routine, Self-Care Clinical Impression: Post lumbar puncture headache Condition: Good Instructions: Lumbar Puncture (ED), Acute Headache (ED) Additional Instructions: Return with increasing headache, weakness, numbness, fever or, vomiting or any other concerns. Referrals: Zaida Gallagher DO [Doctor of Osteopathy] - 5-7 days, call for appt.
[2017-01-05 06:52] LABS: % IMMATURE GRANULYOCYTES 0.2 % (0.0-1.1); ABSOLUTE IMMATURE GRANULOCYTES 0.02 10^3/uL (0.00-0.10); ADD DIFF? NO; ADD MORPH? NO; ADD SCAN? NO; ATYPICAL LYMPHOCYTE FLAG 30 (0-99); FRAGMENT RBC FLAG 0 (0-99); HEMATOCRIT 46.2 % (40.0-51.0); HEMOGLOBIN 15.9 g/dL (13.7-17.5); LEFT SHIFT FLG 0 (0-99); LIPEMIA HEMOLYSIS FLAG 90 (0-99); MEAN CELL HEMOGLOBIN 31.1 pg (27.9-34.1); MEAN CELL HEMOGLOBIN CONCENTR. 34.4 g/dL (32.4-36.7); MEAN CELL VOLUME 90.4 fL (81.5-99.8); MEAN PLATELET VOLUME 9.3 fL (8.7-11.7); PLATELET CLUMPS FLAG 10 (0-99); PLATELET COUNT 253 10^3/uL (150-400); RED BLOOD CELL COUNT 5.11 10^6/uL (4.40-6.38); RED CELL DISTRIBUTION WIDTH 11.5 % (11.5-15.2)
[2017-01-05 07:01] LABS: INR 0.97 (0.83-1.16); PROTIME(PATIENT) 12.8 SEC (12.0-15.0)
[2017-01-05 07:11] LABS: ANION GAP 16 mEq/L (8-16); CALCIUM 10.1 mg/dL (8.5-10.4); CARBON DIOXIDE 21 mEq/l (22-31); CHLORIDE 104 mEq/L (97-110); CREATININE 0.8 mg/dL (0.7-1.3); GLOMERULAR FILTRATION RATE > 60; GLUCOSE 89 mg/dL (70-100); POTASSIUM 4.3 mEq/L (3.5-5.2); SODIUM 141 mEq/L (134-144)
[2017-01-05] MEDS ORDERED: HYDROmorphONE/DILAUDID 1 MG/ML SYR IVP ONE (08:10)
[2017-01-05] MEDS ORDERED: ONDANSETRON 4 MG/2 ML VIAL IVP ONE (08:10)
[2017-01-05 08:21] VITALS: O2SAT 98
[2017-01-05 10:29] VITALS: BP 127/53; PULSE 60
== END 2017-01-05 10:29 | disposition home or self-care (01) ==
DX: G97.1 Other reaction to spinal and lumbar puncture (principal); J45.909 Unspecified asthma, uncomplicated
CPT/HCPCS: 96374; J1170; J2405